=== PATIENT | female | born 1955 | race Caucasian/White ===

== ENCOUNTER 2024-04-08 14:34 | Emergency (ER) | payer MEDICARE, OTHER ==
[~2024-04-08] VITALS: Ht 165.1 cm; Wt 99.8 kg
[~2024-04-08 14:34] MED LIST: ASCO500T20 PO; DULO60CA64 PO; FERR324T10 PO; IBAN150T16 PO; LEVO150T11 PO; PANT40TA PO; PROP80CA2 PO
--- NOTE | 2024-04-08 15:19 | ERN ---
ED Note History of Present Illness Stated Complaint: FALL, HEADACHE,RIGHT KNEE PAIN, SWELLING ON FACE Chief Complaint: Mechanical Fall Time Seen by MD: 15:15 Dictation: History of present illness: 69-year-old female with past medical history of osteoporotic hip fracture, GI bleed, anxiety presented to ED with complaints of upper lip swelling, frontal headache. As the per the patient she had a fall at therapy on Thursday. She fell with her face hit on the ground and sustained right frontal swelling and right upper lip swelling. No history of loss of consciousness, nausea, vomiting, fever, changes in vision reported. As per the dentist she appears to have a foreign body on the upper lip swelling. Allergies: Coded Allergies: aspirin (Unverified Allergy, Intermediate, RASH, 02/02/19) carisoprodol (Unverified Allergy, Intermediate, 02/02/19) swollen hands and feet oxycodone (Unverified Allergy, Intermediate, RASH, 02/02/19) Home Meds Active Scripts Pantoprazole Sodium (Protonix) 40 Mg Tablet.dr, 40 MG PO BIDAC for 30 Days, #60 TAB Prov:SHERON LAYNE Jr., MD 02/16/19 Ferrous Fumarate (Hemocyte) 324 Mg Tablet, 324 MG PO TID for 30 Days, #60 TAB Prov:SHERON LAYNE Jr., MD 02/16/19 Ascorbic Acid (Vitamin C) 500 Mg Tablet, 500 MG PO DAILY for 30 Days, #60 TAB Prov:SHERON LAYNE Jr., MD 02/16/19 Reported Medications Propranolol HCl (Propranolol HCl) 80 Mg Cap.sa.24h, 80 MG PO HS 02/14/19 Ibandronate Sodium (Boniva) 150 Mg Tablet, 150 MG PO MONTH, TAB 02/03/19 Duloxetine HCl (Duloxetine HCl) 60 Mg Capsule.dr, 60 MG PO DAILY, CAP 02/03/19 Levothyroxine Sodium (Levothyroxine Sodium) 150 Mcg Tablet, 150 MCG PO DAILY, TAB 02/03/19 Past Medical History Past Medical History: Hypothyroid Surgical History: Other Surgical History Other: GASTRIC BYPASS, BREAST REDUCTION, HIP FX Review of System Dictation REVIEW OF SYSTEMS Positive for frontal headache, upper lip swelling, nose pain CONSTITUTIONAL: Denies fevers, chills, or night sweats. No unintentional weight loss reported. ENT: No hearing loss, otalgia, otorrhea, rhinitis, rhinorrhea, hoarseness, or sore throat. CARDIOVASCULAR: Denies any exertional angina, dyspnea on exertion, orthopnea, paroxysmal nocturnal dyspnea, palpitations claudication. PULMONARY: Denies any shortness of breath, cough, phlegm / sputum, hemoptysis, pleuritic chest pain. SLEEP: Denies morning headaches, daytime somnolence or napping. Denies difficulty falling asleep, staying asleep, waking from sleep. Denies knowledge of snoring. GASTROINTESTINAL: Denies any type of dysphagia to either liquids or solids. Denies nausea, vomiting, abdominal pain, diarrhea, constipation, blood in stools . NEUROLOGICAL: Denies headache, motor weakness, sensory deficit, vertigo / spinning sensation, gait abnormalities, or tremors. GENITOURINARY: Denies frequency, urgency, nocturia, hematuria or incontinence, low urinary stream, straining to void, urinary intermittency or hesitancy ENDOCRINOLOGY: Denies polyuria, polydipsia, polyphagia or heat / cold intolerance. HEMATOLOGY: Denies thrombophilia / previous clots, or coagulopathy / bleeding disorders. ONCOLOGIC: Denies personal history of malignancy. DERMATOLOGIC: Denies rashes or pruritus. PSYCHIATRIC: Denies any suicidal or homicidal ideation. Denies hallucinations. Initial Vital Sign VS Vital Signs Date Time Temp Pulse Resp B/P (MAP) Pulse Ox O2 Delivery O2 Flow Rate FiO2 04/08/24 14:37 98.8 69 20 132/83 100 Room Air 0 Physical Exam Dictation PHYSICAL EXAM GENERAL APPEARANCE: Well nourished . Awake and alert. Oriented to time, place and person. No acute cardiopulmonary distress. HEENT: Head normocephalic , atraumatic. Sclera anicteric . Pupils are round and reactive. Extraocular movements intact . No conjunctival injection. No nasal congestion. No throat congestion .Oral mucosa moist. RIGHT LATERAL UPPER LIP SWELLING, DRAINAGE PRESENT, MULTIPLE ABRASIONS AND 0.5 CM LACERATION, 1 CM LACERATION INTERNAL UPPER LIP NECK: Supple. No JVD. No thyromegaly. No submental, submandibular, pre- /postauricular, occipital or supraclavicular lymphadenopathy. No carotid bruits. LUNGS: Clear to auscultation bilaterally . No rales, rhonchi or any wheezing. Equal tactile fremitus. Resonant to percussion . CARDIOVASCULAR: Regular rate and rhythm. S1 and S2 normal. No rubs, murmurs or gallops. ABDOMEN: Soft, nontender, and nondistended. There is no rebound tenderness, voluntary guarding, or rigidity. No hepatosplenomegaly. Bowel sounds normal in all four quadrants . NEUROLOGICAL: Cranial nerves II-XII grossly intact. Motor is 5/5 in bilateral upper and lower extremities . No sensory deficits. EXTREMITIES: No edema, No cyanosis , No clubbing. Good capillary refill. SKIN: Painful swelling upper lip. PSYCHIATRY: Normal affect .No auditory or visual hallucinations. Normal speech. No dysarthria. Results (Laboratory/Radiology) Labs Reviewed?: Yes Ultrasound Comment: IMAGING REPORT Signed PATIENT: CLARE TERRELL MR#: [id number] : 1955 SEX: F AGE: 69 LOCATION: [facility] ORDER 57 STATUS: [facility] REPORT#: [id number] SERVICE 155 REASON: lip foreign body ORDERING PHYSICIAN: KRISTI TATE MD PROCEDURE: SOFT HEAD - US SOFT TISSUE HEAD US SOFT TISSUE HEAD REASON: lip foreign body. COMPARISON: None TECHNIQUE: Ultrasound of abdomen limited was performed. FINDINGS: Ill-defined complex fluid collection is seen at the region of interest of the upper limit with surrounding hyperemic flow measuring 11 mm. 2 tiny echogenic structures are seen at the region of interest may be related to tiny foreign bodies. IMPRESSION: Ill-defined complex fluid collection is seen at the region of interest of the upper limit with surrounding hyperemic flow measuring 11 mm. 2 tiny echogenic structures are seen at the region of interest may be related to tiny foreign bodies. DICTATED BY: MARITZA LEVI MD DATE: 04/08/241619 ELECTRONICALLY SIGNED BY: MARITZA LEVI MD DATE: 04/08/241623 CT Scan Comment: [address] [id number] IMAGING REPORT Signed PATIENT: CLARE TERRELL MR#: [id number] : 1955 SEX: F AGE: 69 LOCATION: ED ORDER 150 STATUS: [facility] REPORT#: [id number] SERVICE 150 REASON: FALL WITH FACE HIT ORDERING PHYSICIAN: EAMON FERRARI MD PROCEDURE: NASAL 3VW - NASAL BONES COMP 3+VWS NASAL BONES COMP 3+VWS REASON: FALL WITH FACE HIT . COMPARISON: None TECHNIQUE: 3 images of the nasal bones were obtained. FINDINGS: No evidence of acute displaced fracture is seen. IMPRESSION: Findings as described above. DICTATED BY: MARITZA LEVI MD DATE: 04/08/241545 ELECTRONICALLY SIGNED BY: MARITZA LEVI MD DATE: 04/08/241548 [address] [address] IMAGING REPORT Signed PATIENT: CLARE TERRELL MR#: [id number] : 1955 SEX: F AGE: 69 LOCATION: [facility] ORDER 150 STATUS: REG ER REPORT#: [id number] SERVICE 1502 REASON: H/O FALL WITH FACE FIRTS ON TO THE GROUND ORDERING PHYSICIAN: EAMON FERRARI MD PROCEDURE: HEAD WO - CT HEAD/BRAIN W/O CONTRAST CT HEAD/BRAIN W/O CONTRAST HISTORY: Status post fall COMPARISON: None TECHNIQUE: Multiple sequential axial images of the head were obtained from the base of the skull through vertex. Patient was not given contrast through intravenous route. FINDINGS: The ventricles and extraventricular CSF spaces are dilated consistent with cerebral atrophy. Nonspecific white matter changes seen. There is no midline shift, mass effect or herniation. No acute intracranial bleed is seen. Visualized portion of the paranasal sinuses are grossly within normal limits. IMPRESSION: 1. No acute intracranial bleed is seen. 2. Atrophy with white matter changes. CT was performed with one or more following dose reduction techniques: automated exposure control, adjustment of the mA and kv according to patient's size, or use of a iterative reconstruction technique. DICTATED BY: MARITZA LEVI MD DATE: 04/08/24 1611 ELECTRONICALLY SIGNED BY: MARITZA LEVI MD DATE: 04/08/24 1614 ED Course ED Course Orders Procedure Category Date Status Time Ct Head/Brain W/O CT 04/08/24 Resulted Contrast 15:02 Nasal Bones Comp 3+Vws RAD 04/08/24 Resulted 15:02 Us Soft Tissue Head US 04/08/24 Resulted 15:57 Lidocaine Hcl 1% 20ml PHA 04/08/24 Complete Vial (Lidocaine Hc 16:00 Cefazolin Sodium PHA 04/08/24 Complete (Cefazolin Sodium 500 16:14 Cefazolin Sodium 1 Gm PHA 04/08/24 Complete Vial (Ancef 1 Gm V 16:27 Current Medications Medications (Trade) Dose Ordered Sig/[place] Route PRN Reason Start Time Stop Time Status Last Admin Dose Admin Cefazolin Sodium (ANCEF 1 gm vial) 1 gm ONCE STAT IM 04/08/24 16:27 04/08/24 16:29 DC Cefazolin Sodium (ceFAZolin SODIUM 500 mg vial) 1,000 mg ONCE STAT IM 04/08/24 16:14 04/08/24 16:15 DC Lidocaine HCl (Lidocaine HCl 1% 20ml Vial) 10 ml ONCE ONCE INJ 04/08/24 16:00 04/08/24 16:01 DC Vital Signs Date Time Temp Pulse Resp B/P (MAP) Pulse Ox O2 Delivery O2 Flow Rate FiO2 04/08/24 14:37 98.8 69 20 132/83 100 Room Air 0 Medical Decision Making MDM Differential diagnosis : FALL, LIP LACERATION, FOREIGN BODY EXPLORATION Rationale: Tests considered and ordered secondary to shared decision making include: I will re-evaluate the patient after treatment and diagnostic exams have returned to determine whether they require further testing, can be safely discharged home, or need admission for further treatment and evaluation. Given the social determinants of health affecting care, including literacy, access to medical care, prescription drug management, and [id number] drugs, I will ensure that treatment plans are tailored accordingly. There are no social concerns with this patient. Risk of complication and/or morbidity or mortality of patient management: None Need for hospitalization: Patient does not meet criteria for hospitalization. Need for emergency major/minor surgery: No Prescription drug management Prescriptions will include symptomatic care Medications-Per medication reconciliation Previous outside records reviewed: Old ER visits. Patient's prior external medical records from other ER visits were reviewed by me as indicated. Prior testing and results from previous visits were reviewed. Prior tests were taken into account with medical decision making and resource utilization, independent historian/historians were used to obtain complete medical history. I independently interpreted the test that were performed, results were reviewed by me and considered findings on radiology. Medical management and examination interpretation discussions was done by me with other qualified healthcare professionals as indicated for the patient's care. Revaluation Disposition : PATIENT IS A 69-YEAR-OLD FEMALE COMING IN TO BE EVALUATED FOR UPPER LIP LACERATION WITH THE SWELLING. PATIENT STATES SHE FELL DOWN CAUSING A LIP LACERATION. SHE WAS SEEN BY DENTIST AND WAS ADVISED TO FOLLOW UP HERE DUE TO POSSIBLE FOREIGN BODY SEEN. ULTRASOUND WAS PERFORMED THREE FOREIGN BODIES WERE SEEN WHICH WERE SUCCESSFULLY EXTRACTED. WOUND WAS CLEANED AND THOROUGHLY IRRIGATED PATIENT TOLERATED PROCEDURE WELL. LACERATION WAS REPAIRED WITH CHROMIC GUT FOR O X3 SIMPLE INTERRUPTED SUTURES. GOOD HEMOSTASIS OBTAINED GOOD APPROXIMATION. PATIENT TOLERATED PROCEDURE WELL BE DISCHARGED IN STABLE CONDITION I ADVISED HER APPROPRIATE FOLLOW UP WITH THE PCP IN 1-2 DAYS TO CONTINUE MONITORING EVOLUTION OF REPAIR. Procedure Blade Size: BLUNT DISSECTION I & D Procedure: no betadine prep Progress AND A STERILE ENVIRONMENT A WOUND FOUND IN THE RIGHT LATERAL UPPER LIP WAS CLEANED ANESTHETIZED USING LIDOCAINE 1% 5 ML WERE USED. GOOD ANESTHESIA ACHIEVED. ONCE ANESTHESIA WAS ACHIEVED WOUND WAS EXPLORED WITH HEMOSTATS BLUNT DISSECTION WAS CARRIED DOWN AND THREE FOREIGN BODIES WERE REMOVED. PATIENT TOLERATED PROCEDURE WELL. ONCE FOREIGN BODIES WERE REMOVED WOUND WAS IRRIGATED AND CLOSED USING FOUR 0 CHROMIC GUT SUTURES X3 SIMPLE INTERRUPTED. GOOD HEMOSTASIS OBTAINED GOOD APPROXIMATION, PATIENT TOLERATED PROCEDURE WELL. DX & DISP Disposition: Discharge Departure Impression: Primary Impression: Fall Additional Impression: Laceration of lip with foreign body Condition: Stable Scripts Amoxicillin/Potassium Clav (Amox Tr-K Clv 875-125 mg Tab) 875 Mg-125 Mg Tablet 1 TAB PO BID for 10 Days, #20 TAB 0 Refills Prov: KRISTI TATE MD 04/08/24 Additional Instructions: FOLLOW-UP WITH PRIMARY CARE PROVIDER IN 1 TO 2 DAYS. TAKE MEDICATIONS DIRECTED HERE IN THE EMERGENCY ROOM. OKAY TO CONTINUE HOME MEDICATIONS UNLESS OTHERWISE DISCUSSED DURING YOUR VISIT IN THE EMERGENCY ROOM TODAY. RETURN TO YOUR NEAREST EMERGENCY ROOM IF SYMPTOMS WORSEN OR IF THERE IS NO IMPROVEMENT. CALL 911 IF YOU NEED IMMEDIATE ASSISTANCE. TAKE TYLENOL [id number] NEEDED AND IF NO CONTRAINDICATIONS ARE PRESENT. INCREASE ORAL HYDRATION. A WOUND CULTURE OR URINE CULTURE WAS ORDERED HERE IN THE EMERGENCY ROOM DEPARTMENT PLEASE FOLLOW-UP WITH PRIMARY CARE PROVIDER AND ADVISE THEM TO GET REPEAT PORTS FROM OUR FACILITY. IF YOU HAD ANY SURINDER WRAP/SPLINTS THAT WERE APPLIED HERE, PLEASE DO NOT REMOVE THEM UNTIL YOU SEE YOUR PRIMARY CARE OR SPECIALTY. REFERRALS: Referrals: ELIO RAMOS MD (PCP) Time of Disposition: 17:06 EAMON FERRARI MD Apr 08, 2024 15:19 KRISTI TATE MD Apr 08, 2024 17:12
--- NOTE | 2024-04-08 15:49 | HMCIMG ---
NASAL BONES COMP 3+VWS REASON: FALL WITH FACE HIT . COMPARISON: None TECHNIQUE: 3 images of the nasal bones were obtained. FINDINGS: No evidence of acute displaced fracture is seen. IMPRESSION: Findings as described above.
--- NOTE | 2024-04-08 16:14 | HMCIMG ---
CT HEAD/BRAIN W/O CONTRAST HISTORY: Status post fall COMPARISON: None TECHNIQUE: Multiple sequential axial images of the head were obtained from the base of the skull through vertex. Patient was not given contrast through intravenous route. FINDINGS: The ventricles and extraventricular CSF spaces are dilated consistent with cerebral atrophy. Nonspecific white matter changes seen. There is no midline shift, mass effect or herniation. No acute intracranial bleed is seen. Visualized portion of the paranasal sinuses are grossly within normal limits. IMPRESSION: 1. No acute intracranial bleed is seen. 2. Atrophy with white matter changes. CT was performed with one or more following dose reduction techniques: automated exposure control, adjustment of the mA and kv according to patient's size, or use of a iterative reconstruction technique.
--- NOTE | 2024-04-08 16:24 | HMCIMG ---
US SOFT TISSUE HEAD REASON: lip foreign body. COMPARISON: None TECHNIQUE: Ultrasound of abdomen limited was performed. FINDINGS: Ill-defined complex fluid collection is seen at the region of interest of the upper limit with surrounding hyperemic flow measuring 11 mm. 2 tiny echogenic structures are seen at the region of interest may be related to tiny foreign bodies. IMPRESSION: Ill-defined complex fluid collection is seen at the region of interest of the upper limit with surrounding hyperemic flow measuring 11 mm. 2 tiny echogenic structures are seen at the region of interest may be related to tiny foreign bodies.
[2024-04-08] MEDS: LIDOCAINE HCL 1% 20 ML VIAL INJ ONE (17:08)
[2024-04-08] MEDS ORDERED: AMOX1TAB16 PO (17:11)
[2024-04-08] MEDS: ceFAZolin SODIUM 1 GM VIAL IM STA (17:21)
[2024-04-08] MEDS: DIPH,PERTUSS(ACELL),TET VAC/PF 0.5 ML VIAL IM ONE (17:39)
[2024-04-08 17:43] VITALS: BP 132/80; PULSE 89; RESP 16; TEMP 99; O2SAT 99
== END 2024-04-08 17:43 | disposition home or self-care (01) ==
LOC: EDH 14:34
DX: S01.521A Laceration with foreign body of lip, initial encounter (principal); E03.9 Hypothyroidism, unspecified; Z79.899 Other long term (current) drug therapy; Z88.5 Allergy status to narcotic agent; Z88.6 Allergy status to analgesic agent; Z98.84 Bariatric surgery status; W18.39XA Other fall on same level, initial encounter; Y93.89 Activity, other specified; Y92.89 Other specified places as the place of occurrence of the external cause; Y99.8 Other external cause status
CPT/HCPCS: 99285; 12051; 70450; 90715; 70160; 76536; 90471; 96372; J0690; 10120